=== PATIENT | female | born 2000 | race Caucasian/White ===

== ENCOUNTER 2022-06-02 21:43 | Emergency (ER) | payer OTHER, SELFPAY ==
[2022-06-02 21:51] VITALS: BP 125/78; PULSE 89; RESP 16; TEMP 36.4; O2SAT 99
--- NOTE | 2022-06-02 22:27 | ED.EYEPROB ---
HPI - Eye Problem General Chief complaint: Eye Problems Stated complaint: Lost vision in LT eye Time Seen by Provider: 06/02/22 22:09 History of Present Illness HPI Narrative: 21-year-old young woman presenting to the emergency department with visual loss. The time of our interview she notes about 30 minutes ago having felt like there was something in her left eye. Like when she has gotten mascara and there before. It had blurriness and then went dark. Did wash it out with normal saline. She is accompanied here by her aunt who has been assisting her. Since that time is back to blurry vision. Has been having pain around her left eye as well. denies light sensitivity when I ask, but clearly she is during exam and later endorses that. Of primary concern otherwise is nausea. She does not know of a migraine history other than when she was seen in February of this year with pain around her right eye and diagnosed with a migraine. CT imaging of the head at that time was negative. This was not a CTA. She says she has been blurry in her right eye since. She has not had any eye exam since that time. Today does not describe any loss of sensation otherwise. No weakness. No fever rash described. She does wear glasses in the form of blue tinted lenses apparently these are prescription primarily for screen use. Goes to [facility] for optometry. I notice a speck in the sclera of the left eye on initial exam, I am told by her aunt that is always there. Related Data Home Medications Medication Instructions Recorded Confirmed etonogestrel 68 mg subdermal 1 implant SUBDERMAL PRN 06/02/22 06/02/22 implant (Nexplanon) lisdexamfetamine 30 mg capsule 30 mg PO DAILY 06/02/22 06/02/22 (Vyvanse) sertraline 100 mg tablet 100 mg PO Q24H 06/02/22 06/02/22 Allergies Allergy/AdvReac Type Severity Reaction Status Date / Time No Known Drug Allergies Allergy Verified 06/02/22 22:27 Review of Systems Status of ROS: Reports: 6 or more systems reviewed and unremarkable except as noted in History and below [facility] Medical History ADHD Anxiety Migraine Family History Other No significant past surgical history Social History Smoking Status: Former smoker Second hand tobacco smoke exposure: No How often do you have a drink containing alcohol: never AUDIT-C Alcohol total score: 0 Non-prescribed substance use: denies use Exam Narrative: Exam Narrative: General: pleasant, nad, breathing easily. CN 2 - 12 intact. Mentating normally. Speaking easily. Eyes are squinted especially the left. Skin: warm and dry and well-perfused peripherally without apparent rash. No sensory loss HEENT: head looks atraumatic. Eyes are non-icteric, actually without sclera injection, PERRLA. EOMi and appears to be without pain. No swelling or erythema the area of the eye. At the 5 o'clock position in the left sclera there is a small speck. I see no trauma or foreign body while inverting the lids. Funduscopic exam is unremarkable other than light sensitivity. Healthy vasculature appreciated. No retinal pallor appreciated. Restricted peripheral visual field in the left eye. Cardiac: RRR Musculoskeletal/Extremities: Moving all extremities without difficulty. No sensory loss. No extremity edema. Const: Vital Signs, click to edit/add: Vital Signs - 24 hr 06/02/22 21:51 Temperature 97.6 F Pulse Rate [Right Pulse Oximeter] 89 Respiratory Rate 16 Blood Pressure [Ri ght Upper Arm] 125/78 Pulse Oximetry 99 Documenting provider has reviewed patient's vital signs: yes Course Course Hospital Course: Was reported that something came out of the eye and vision completely back to normal pain gone. Consultations Consultation #1: I placed a call to ophthalmology as well as Neurology for consultation. After patient departure did hear back from Ophthalmology. Puzzling presentation acknowledged. Recommendation for close followup. Vital Signs Vital signs: Initial Vital Signs Temperature 97.6 F 06/02/22 21:51 Temperature Source Temporal Artery Scan 06/02/22 21:51 Pulse Rate 89 06/02/22 21:51 Respiratory Rate 16 06/02/22 21:51 Blood Pressure 125/78 06/02/22 21:51 Blood Pressure Mean 93 06/02/22 21:51 Blood Pressure Position Sitting 06/02/22 21:51 Pulse Oximetry 99 06/02/22 21:51 Oxygen Delivery Method 06/02/22 21:51 Vital Signs Temperature 97.6 F 06/02/22 21:51 Pulse Rate 89 06/02/22 21:51 Respiratory Rate 16 06/02/22 21:51 Blood Pressure 125/78 06/02/22 21:51 Pulse Oximetry 99 06/02/22 21:51 Temperature 97.6 F 06/02/22 21:51 Pulse Rate 89 06/02/22 21:51 Respiratory Rate 16 06/02/22 21:51 Blood Pressure 125/78 06/02/22 21:51 Pulse Oximetry 99 06/02/22 21:51 MDM - Eye Problem MDM Narrative Medical decision making narrative: I went to prepare orders for possible ocular migraine. After placing these was reported that something came out of Michaelle's eye. Vision was back to normal and pain resolved. We did do visual acuity testing which was normal --at least 20/25 in the left eye and 20/50 or 20/50 in the right eye. I returned to examine. This aforementioned spec was gone. I believe i may have wiped it from the upper lid then on re-examination. I have a hard time understanding how this speck or foreign body like this could cause loss of vision. Not entirely painless loss of vision. Certainly could have been occlusive issue. Very unusual abrupt resolution. I wonder if conversion played a role here. Medical Records Attestation: I reviewed the patient's medical records. Discharge Plan Discharge Clinical Impression: Acute left eye pain, Foreign body of sclera of left eye, Acute loss of vision Patient Disposition: Home w/ Parent or Adult Condition: Improved Additional Instructions: I would encourage you to follow-up for more extensive ophthalmology evaluation. I will try to touch base with somebody tomorrow morning if you call for further recommendations. Otherwise return/be seen for repeat loss of vision, severe headache, repeated vomiting. I would note that other than more extensive eye exam, MRI of some sort would be next step of imaging if needed. This is available during weekdays in this department. Best wishes with your studies. Prescriptions: No Action Vyvanse 30 mg capsule 30 mg PO DAILY 0RF Label Comments: TAKE 1 CAPSULE BY MOUTH EVERY DAY IN THE MORNING sertraline 100 mg tablet 100 mg PO Q24H 0RF Nexplanon 68 mg implant 1 implant subdermal PRN 0RF Follow Up/Referrals: Provider,Not a Local [Primary Care Provider] - Stand Alone [facility]: [facility] Info Instructions
--- NOTE | 2022-06-02 22:46 | ED.NURSE ---
Pt states debris came out of left eye and pt is able to now see. Pt states she is feeling much better and would like to go home. Per MD, hold on IV, blood samples, and medications. MD in room to evaluate pt and discuss plan.
== END 2022-06-02 23:05 | disposition home or self-care (01) ==
PROVIDERS: Emergency Provider Family Medicine
DX: T15.82XA Foreign body in other and multiple parts of external eye, left eye, initial encounter (principal)
CPT/HCPCS: 85025; 85379; 85651; 99283